=== PATIENT | male | born 1940 | race Caucasian/White ===

== ENCOUNTER → 2017-09-17 | Outpatient (CLI) | payer MEDICARE | END | disposition home or self-care (01) | LOC: EDUNIT# 13:00 → SHCH 14:03 | PROVIDERS: ATTEND Internal Medicine Cardiovascular Disease | DX: I65.23 Occlusion and stenosis of bilateral carotid arteries (principal); R09.89 Other specified symptoms and signs involving the circulatory and respiratory systems | CPT/HCPCS: 93880 ==

== ENCOUNTER → 2019-06-10 | Outpatient (CLI) | payer MEDICARE ==
[~2019-06-10] VITALS: Ht 170.2 cm; Wt 71.7 kg
[~2019-06-10] MED LIST: REGADENOSON 0.4 MG/5 ML PF SYG IVP SCH
== END | disposition home or self-care (01) ==
LOC: SHCH 07:48
PROVIDERS: ATTEND Internal Medicine Cardiovascular Disease
DX: I25.10 Atherosclerotic heart disease of native coronary artery without angina pectoris (principal)
CPT/HCPCS: 78452; 93017; 96374; A9500 ×2; J2785

== ENCOUNTER → 2025-04-27 | Outpatient (CLI) | payer OTHER, MEDICARE ==
--- NOTE | 2025-04-27 21:56 | HMCIMG ---
EXAM: MR Lumbar Spine without Intravenous Contrast. CLINICAL HISTORY: Radiculopathy, lumbosacral region. TECHNIQUE: Magnetic resonance images of the lumbar spine without intravenous contrast in multiple planes. CONTRAST: Without. COMPARISON: None provided. 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 Grade I anterolisthesis of L4 over L5 without spondylolysis. Mild retrolisthesis at L1-L2 and L3-L4 levels. Moderate retrolisthesis of L2 over L3. No spondylolysis at the rest of the other levels except the L5 level. The lumbar lordosis is exaggerated. There is scoliosis of the lumbar spine with convexity toward the left with the apex of the scoliosis at L3 level, the Leon's angle measuring 12???. There are anterior and posterior marginal osteophytes at multiple levels in the lumbar spine. Schmorl's nodes are visualized at few levels. Modic type I and type III endplate changes are present at few levels in the lumbar spine. 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 Grade I anterolisthesis of L4 over L5 without spondylolysis. Mild retrolisthesis at L1-L2 and L3-L4 levels. Moderate retrolisthesis of L2 over L3. The lumbar lordosis is exaggerated. There is scoliosis of the lumbar spine with convexity toward the left with the apex of the scoliosis at L3 level, the Leon's angle measuring 12???. SPINAL CORD: Normal signal and contour. DISCS/DEGENERATIVE CHANGES: There are diffuse Pfirrmann grade 3 to grade 5 disc degenerative changes in the lumbar spine with multilevel reduction of the disc height, most prominent at L4-L5 and L5-S1 levels. Extensive facet arthropathy is present at multiple levels in the lumbar spine, most marked in the L5-S1 level. T12-L1: Tiny central protrusion of the disc causing thecal sac indentation. Mild bilateral facet arthropathy is present. No nerve root impingement. L1-L2: Small central, bilateral paracentral disc protrusion causing thecal sac indentation, slightly asymmetric, right greater than left. There is mild bilateral ligamentum flavum thickening and facet arthropathy. No neural compromise. L2-L3: A moderate sized circumferential pseudobulge of the disc with associated ligamentum flavum thickening and facet arthropathy causes spinal canal, lateral recesses and neural foraminal stenosis with bilateral traversing L3 and exiting L2 nerve roots compression. There is crowding of the cauda equina nerve roots at this level minimally. The diameter of the spinal canal measures 7 mm. L3-L4: Moderate sized circumferential diffuse bulge causing thecal sac indentation, associated with moderate severity ligamentum flavum thickening and facet arthropathy causing spinal canal, lateral recesses and neural foraminal stenosis with bilateral traversing L4 nerve roots impingement. There is minimal indentation upon the bilateral exiting L3 nerve roots. L4-L5: Severe facet arthropathy and ligamentum flavum thickening with large facet joints osteophytes causing lateral recess stenosis. There is a central and bilateral paracentral circumferential pseudobulge of the disc at this level, contributing to spinal canal, lateral recesses and neural foraminal stenosis. There is compression upon the bilateral exiting L4 and traversing L5 nerve roots. The spinal canal diameter measures 7 mm with mild crowding of the cauda equina nerve roots. L5-S1: Moderate sized circumferential pseudobulge of the disc with associated severe ligamentum flavum thickening and facet arthropathy causing spinal canal, lateral recesses and neural foraminal stenosis with bilateral traversing S1 and exiting L5 nerve roots compression. Cauda equina nerve roots compression is also present at this level. PARASPINAL SOFT TISSUES: Paravertebral soft tissues are unremarkable. IMPRESSION: 1. 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 2. 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 3. Degenerative changes: multilevel disc degeneration (Pfirrmann grade 3???5) with severe facet arthropathy, most marked at L5-S1; Modic type I and III endplate changes at multiple levels; anterior/posterior marginal osteophytes; Schmorl???s nodes. 4. Degenerative alignment changes: mild retrolisthesis at L1-L2 and L3-L4, moderate retrolisthesis at L2-L3; exaggerated lumbar lordosis; scoliosis convex left apex at L3 with Leon angle 12???. 5. Incidental degenerative changes and additional chronic findings are noted, see report body for details. /[place]
== END | disposition home or self-care (01) ==
LOC: RAH 14:53
PROVIDERS: ATTEND Physical Medicine & Rehabilitation
DX: M47.27 Other spondylosis with radiculopathy, lumbosacral region (principal); M51.25 Other intervertebral disc displacement, thoracolumbar region; M47.815 Spondylosis without myelopathy or radiculopathy, thoracolumbar region; M43.16 Spondylolisthesis, lumbar region; M41.86 Other forms of scoliosis, lumbar region; M25.78 Osteophyte, vertebrae; M48.07 Spinal stenosis, lumbosacral region
CPT/HCPCS: 72148